=== PATIENT | female | born 2000 | race Hispanic/Latino ===

== ENCOUNTER 2024-09-15 04:01 | Emergency (ER) | payer BC ==
[2024-09-15] MEDS ORDERED: Amoxicillin/Potassium Clav 875 MG TAB ONE (04:21)
[2024-09-15] MEDS ORDERED: Bacitracin 1 PK ONE (04:21)
[2024-09-15] MEDS ORDERED: Morphine 4 MG/ML VIAL ONE (04:21)
[2024-09-15] MEDS ORDERED: Ketorolac Tromethamine 30 MG (1 mL) VIAL ONE (04:21)
[2024-09-15] MEDS ORDERED: Boostrix 0.5 ML (Tdap) VIAL (>/=7 yrs of age) ONE (04:22)
[2024-09-15 05:08] LABS: Pregnancy Test - Urine (BHCG) Negative (Negative); Pregu Control Background? CLEAR/WHITE (CLR/WHITE); Pregu Control Bar Appear? YES (CONTROL BAR); Specific Gravity 1.007 (1.002-1.036)
== END 2024-09-15 05:35 | disposition home or self-care (01) ==
LOC: MADERS 04:01
DX: S61.552A Open bite of left wrist, initial encounter (principal); S51.852A Open bite of left forearm, initial encounter; S00.11XA Contusion of right eyelid and periocular area, initial encounter; M25.572 Pain in left ankle and joints of left foot; F17.210 Nicotine dependence, cigarettes, uncomplicated; Z23 Encounter for immunization; W54.0XXA Bitten by dog, initial encounter
CPT/HCPCS: 81025; 90471; 90715; 94760; 96374; 96375; J1885; J2272